=== PATIENT | male | born 1995 | race Caucasian/White ===

== ENCOUNTER → 2020-05-29 11:01 | Outpatient (CLI) | payer MEDICAID, SELFPAY ==
[2020-05-29 12:12] LABS: Absolute Lymphocyte Count 1.68 X10^3/uL (0.83-4.51); Absolute Neutrophil Count 3.3 X10^3/uL (2.0-7.7); Basophil# 0.05 X10^3/uL; Basophil% 0.8 % (0-1); Eosinophil# 0.28 X10^3/uL; Eosinophils% 4.7 % (0-5); Hematocrit 46.1 % (40-54); Hemoglobin 15.1 g/dL (13.0-16.5); Lymphocyte # 1.68 X10^3/ul (4.0); Lymphocyte % 28.1 % (19-41); Mean Corp Hgb Conc 32.8 g/dL (32-36); Mean Corpuscular Hgb 27.7 pg (27.0-32.0); Mean Corpuscular Volume 84.4 fL (80-94); Mean Platelet Vol. 10.7 fl (6.2-12.0); Monocyte# 0.68 X10^3/uL; Monocyte% 11.4 % (0-10); NRBC Flagged by Analyzer 0 % (0-5); Neutrophil # 3.27 X10^3/uL (2.7-7.7); Neutrophil % 54.8 % (47-70); Platelet Count 249 K/mm3 (150-450); RBC Distribution Width CV 12.8 % (11.6-14.6); RBC Distribution Width SD 38.8 fl (35.1-43.9); Red Blood Count 5.46 M/mm3 (4.6-6.2)
[2020-05-29 12:44] LABS: Hemoglobin A1c 5.3 % (3.8-5.6)
[2020-05-29 12:48] LABS: Microalbumin,Random Urine 11.7 mg/L (NO RANGE EST.); Microalbumin:Creatinine Ratio 5.8 mg/g CRE (<30 mg/g CRE)
[2020-05-29 12:59] LABS: ALB/GLOB Ratio 1.4 RATIO (0.9-2.4); AST(SGOT) 28 U/L (15-37); Alanine Aminotransfer ALT/SGPT 68 U/L (16-61); Albumin, Serum 4.2 g/dL (3.2-5.0); Alkaline Phosphatase 103 U/L (45-117); Anion Gap 7 (5-15); BUN 10 mg/dL (7-18); BUN/Creat Ratio 13.4 RATIO (10-20); Calcium,Total 9.1 mg/dL (8.5-10.1); Chloride 107 mmol/L (98-107); Cholesterol 162 mg/dL (200); Creatinine, Serum 0.74 mg/dL (0.70-1.30); EST Glomerular Filtration Rate 135 mL/min (>60); Est Glom Filt Rate - Afr Amer 163 mL/min (>60); GGTP 45 U/L (15-85); Globulin 3.1 g/dL (2.2-4.2); Glucose 107 mg/dL (74-106); High Density Lipoprotein 32 mg/dL; Potassium 4.1 mmol/L (3.5-5.1); Protein, Total 7.3 g/dL (6.4-8.2); Sodium Level 141 mmol/L (136-145); Thyroid Stim Hormone (TSH) 1.94 uIU/mL (0.358-3.74)
== END ==
PROVIDERS: PCP Family Medicine; Referring Provider Family Medicine; Visit Provider Family Medicine
DX: E11.9 Type 2 diabetes mellitus without complications (principal); F41.9 Anxiety disorder, unspecified; E66.9 Obesity, unspecified
CPT/HCPCS: 36415; 80053; 82043; 82465; 82570; 82977; 83036; 83718; 84443; 85025

== ENCOUNTER → 2020-11-19 11:37 | Outpatient (CLI) | payer MEDICAID, SELFPAY ==
[2020-11-19 15:22] LABS: Absolute Lymphocyte Count 1.44 X10^3/uL (0.83-4.51); Absolute Neutrophil Count 2.2 X10^3/uL (2.0-7.7); Basophil# 0.05 X10^3/uL; Basophil% 1.1 % (0-1); Eosinophil# 0.22 X10^3/uL; Hematocrit 49.4 % (40-54); Hemoglobin 17.3 g/dL (13.0-16.5); Lymphocyte # 1.44 X10^3/ul (0.83-4.51); Lymphocyte % 32.7 % (19-41); Mean Corpuscular Hgb 27.7 pg (27.0-32.0); Mean Platelet Vol. 11.7 fl (6.2-12.0); Monocyte# 0.53 X10^3/uL; NRBC Flagged by Analyzer 0 % (0-5); Neutrophil # 2.16 X10^3/uL (2.7-7.7); Platelet Count 256 K/mm3 (150-450); RBC Distribution Width CV 12.6 % (11.6-14.6); RBC Distribution Width SD 35.7 fl (35.1-43.9); Red Blood Count 6.25 M/mm3 (4.6-6.2); White Blood Count 4.4 K/mm3 (4.4-11.0)
[2020-11-19 16:15] LABS: AST(SGOT) 119 U/L (15-37); Alanine Aminotransfer ALT/SGPT 162 U/L (16-61); Albumin, Serum 3.9 g/dL (3.2-5.0); Alkaline Phosphatase 175 U/L (45-117); Anion Gap 9 (5-15); BUN 11 mg/dL (7-18); BUN/Creat Ratio 12.6 RATIO (10-20); Calcium,Total 9.3 mg/dL (8.5-10.1); Chloride 101 mmol/L (98-107); Creatinine, Serum 0.87 mg/dL (0.70-1.30); EST Glomerular Filtration Rate 112 mL/min (>60); Est Glom Filt Rate - Afr Amer 135 mL/min (>60); Globulin 3.8 g/dL (2.2-4.2); Glucose 301 mg/dL (74-106); Potassium 4.2 mmol/L (3.5-5.1); Protein, Total 7.7 g/dL (6.4-8.2); Sodium Level 133 mmol/L (136-145)
== END ==
PROVIDERS: PCP Family Medicine; Referring Provider Family Medicine; Visit Provider Family Medicine
DX: E11.65 Type 2 diabetes mellitus with hyperglycemia (principal)
CPT/HCPCS: 36415; 80053; 85025

== ENCOUNTER → 2021-01-27 16:01 | Outpatient (CLI) | payer MEDICAID, SELFPAY ==
[2021-01-27 18:04] LABS: ALB/GLOB Ratio 0.8 RATIO (0.9-2.4); AST(SGOT) 84 U/L (15-37); Alanine Aminotransfer ALT/SGPT 130 U/L (16-61); Albumin, Serum 3.5 g/dL (3.2-5.0); Alkaline Phosphatase 105 U/L (45-117); Anion Gap 5 (5-15); BUN 13 mg/dL (7-18); BUN/Creat Ratio 15.6 RATIO (10-20); Calcium,Total 9.7 mg/dL (8.5-10.1); Chloride 103 mmol/L (98-107); Creatinine, Serum 0.84 mg/dL (0.70-1.30); EST Glomerular Filtration Rate 117 mL/min (>60); Est Glom Filt Rate - Afr Amer 142 mL/min (>60); Globulin 4.4 g/dL (2.2-4.2); Glucose 94 mg/dL (74-106); Potassium 4.5 mmol/L (3.5-5.1); Protein, Total 7.9 g/dL (6.4-8.2); Sodium Level 135 mmol/L (136-145)
[2021-01-27 18:09] LABS: Hemoglobin A1c 8.3 % (3.8-5.6)
== END ==
PROVIDERS: PCP Family Medicine; Referring Provider Family Medicine; Visit Provider Family Medicine
DX: R74.01 Elevation of levels of liver transaminase levels (principal); E11.65 Type 2 diabetes mellitus with hyperglycemia
CPT/HCPCS: 36415; 80053; 83036

== ENCOUNTER 2021-04-28 11:01 | Outpatient (CLI) | payer MEDICAID, SELFPAY ==
[2021-04-28 12:21] LABS: Absolute Lymphocyte Count 1.95 X10^3/uL (0.83-4.51); Absolute Neutrophil Count 3.2 X10^3/uL (2.0-7.7); Basophil# 0.06 X10^3/uL; Eosinophil# 0.28 X10^3/uL; Eosinophils% 4.5 % (0-5); Hematocrit 44.1 % (40-54); Hemoglobin 15.5 g/dL (13.0-16.5); Lymphocyte # 1.95 X10^3/ul (0.83-4.51); Lymphocyte % 31.1 % (19-41); Mean Corp Hgb Conc 35.1 g/dL (32-36); Mean Corpuscular Hgb 28.8 pg (27.0-32.0); Mean Platelet Vol. 10.5 fl (6.2-12.0); Monocyte# 0.73 X10^3/uL; Monocyte% 11.6 % (0-10); NRBC Flagged by Analyzer 0 % (0-5); Neutrophil # 3.23 X10^3/uL (2.7-7.7); Neutrophil % 51.3 % (47-70); Platelet Count 247 K/mm3 (150-450); RBC Distribution Width CV 13.5 % (11.6-14.6); RBC Distribution Width SD 39.8 fl (35.1-43.9); Red Blood Count 5.38 M/mm3 (4.6-6.2); White Blood Count 6.3 K/mm3 (4.4-11.0)
[2021-04-28 12:56] LABS: ALB/GLOB Ratio 1.2 RATIO (0.9-2.4); AST(SGOT) 110 U/L (15-37); Alanine Aminotransfer ALT/SGPT 170 U/L (16-61); Albumin, Serum 4.1 g/dL (3.2-5.0); Alkaline Phosphatase 97 U/L (45-117); Anion Gap 7 (5-15); BUN 11 mg/dL (7-18); BUN/Creat Ratio 12.3 RATIO (10-20); Calcium,Total 9.7 mg/dL (8.5-10.1); Chloride 104 mmol/L (98-107); EST Glomerular Filtration Rate 108 mL/min (>60); Est Glom Filt Rate - Afr Amer 131 mL/min (>60); Globulin 3.5 g/dL (2.2-4.2); Glucose 122 mg/dL (74-106); Potassium 4.1 mmol/L (3.5-5.1); Protein, Total 7.6 g/dL (6.4-8.2); Sodium Level 137 mmol/L (136-145); Thyroid Stim Hormone (TSH) 4.17 uIU/mL (0.358-3.74)
== END 2021-04-28 23:59 | disposition home or self-care (01) ==
LOC: MFPLAB 11:04
PROVIDERS: PCP Family Medicine; Referring Provider Family Medicine; Visit Provider Family Medicine
DX: E11.65 Type 2 diabetes mellitus with hyperglycemia (principal); F31.9 Bipolar disorder, unspecified; E66.9 Obesity, unspecified; Z68.33 Body mass index [BMI] 33.0-33.9, adult; R74.01 Elevation of levels of liver transaminase levels
CPT/HCPCS: 36415; 80053; 84443; 85025

== ENCOUNTER → 2022-04-27 | Outpatient (CLI) | payer MEDICAID, SELFPAY ==
[2022-04-27 17:57] LABS: Absolute Lymphocyte Count 1.65 X10^3/uL (0.83-4.51); Basophil# 0.07 X10^3/uL; Basophil% 1.1 % (0-1); Eosinophil# 0.15 X10^3/uL; Eosinophils% 2.3 % (0-5); Hematocrit 47.8 % (40-54); Lymphocyte # 1.65 X10^3/ul (0.83-4.51); Lymphocyte % 24.8 % (19-41); Mean Corp Hgb Conc 33.5 g/dL (32-36); Mean Corpuscular Volume 83.7 fL (80-94); Mean Platelet Vol. 11.2 fl (6.2-12.0); Monocyte# 0.78 X10^3/uL; Monocyte% 11.7 % (0-10); NRBC Flagged by Analyzer 0 % (0-5); Neutrophil # 3.98 X10^3/uL (2.7-7.7); Neutrophil % 59.8 % (47-70); Platelet Count 243 K/mm3 (150-450); RBC Distribution Width CV 13.1 % (11.6-14.6); RBC Distribution Width SD 39.9 fl (35.1-43.9); Red Blood Count 5.71 M/mm3 (4.6-6.2); White Blood Count 6.7 K/mm3 (4.4-11.0)
[2022-04-27 18:09] LABS: Hemoglobin A1c 5.4 % (3.8-5.6)
[2022-04-27 18:19] LABS: ALB/GLOB Ratio 1.6 RATIO (0.9-2.4); AST(SGOT) 23 U/L (15-37); Alanine Aminotransfer ALT/SGPT 28 U/L (16-61); Albumin, Serum 4.6 g/dL (3.2-5.0); Alkaline Phosphatase 114 U/L (45-117); Anion Gap 7 (5-15); BUN 7 mg/dL (7-18); BUN/Creat Ratio 8.2 RATIO (10-20); Calcium,Total 9.9 mg/dL (8.5-10.1); Chloride 107 mmol/L (98-107); Creatinine, Serum 0.86 mg/dL (0.70-1.30); EST Glomerular Filtration Rate 113 mL/min (>60); Est Glom Filt Rate - Afr Amer 136 mL/min (>60); Globulin 2.8 g/dL (2.2-4.2); Glucose 70 mg/dL (74-106); Protein, Total 7.4 g/dL (6.4-8.2); Sodium Level 142 mmol/L (136-145); Thyroid Stim Hormone (TSH) 1.28 uIU/mL (0.358-3.74)
== END | disposition home or self-care (01) ==
LOC: MFPLAB 16:15
PROVIDERS: PCP Family Medicine; Referring Provider Family Medicine; Visit Provider Family Medicine
DX: E11.69 Type 2 diabetes mellitus with other specified complication (principal); F25.9 Schizoaffective disorder, unspecified
CPT/HCPCS: 36415; 80053; 83036; 84443; 85025

== ENCOUNTER → 2023-05-30 | Outpatient (CLI) | payer MEDICAID, OTHER, SELFPAY ==
[2023-05-30 17:45] LABS: Absolute Lymphocyte Count 2.18 X10^3/uL (0.83-4.51); Absolute Neutrophil Count 4.5 X10^3/uL (2.0-7.7); Basophil# 0.07 X10^3/uL; Basophil% 0.9 % (0-1); Eosinophils% 2.6 % (0-5); Hematocrit 50.1 % (40-54); Hemoglobin 16.4 g/dL (13.0-16.5); Lymphocyte # 2.18 X10^3/ul (0.83-4.51); Lymphocyte % 27.8 % (19-41); Mean Corp Hgb Conc 32.7 g/dL (32-36); Mean Corpuscular Hgb 27.1 pg (27.0-32.0); Mean Corpuscular Volume 82.7 fL (80-94); Mean Platelet Vol. 10.4 fl (6.2-12.0); Monocyte# 0.83 X10^3/uL; Monocyte% 10.6 % (0-10); NRBC Flagged by Analyzer 0 % (0-5); Neutrophil # 4.54 X10^3/uL (2.7-7.7); Neutrophil % 57.8 % (47-70); Platelet Count 250 K/mm3 (150-450); RBC Distribution Width CV 12.7 % (11.6-14.6); RBC Distribution Width SD 38.4 fl (35.1-43.9); Red Blood Count 6.06 M/mm3 (4.6-6.2); White Blood Count 7.8 K/mm3 (4.4-11.0)
[2023-05-30 17:49] LABS: POSITIVE COUNT NO; POSITIVE DIFFERENTIAL NO; POSITIVE MORPHOLOGY NO
[2023-05-30 17:56] LABS: Hemoglobin A1c 5.8 % (3.8-5.6)
[2023-05-30 18:12] LABS: Erythrocyte Sedimentation Rate 4 mm/hr (0-20)
[2023-05-30 18:22] LABS: ALB/GLOB Ratio 1.3 RATIO (0.9-2.4); AST(SGOT) 34 U/L (15-37); Alanine Aminotransfer ALT/SGPT 84 U/L (16-61); Albumin, Serum 4.1 g/dL (3.2-5.0); Alkaline Phosphatase 94 U/L (45-117); Anion Gap 3 (5-15); BUN 10 mg/dL (7-18); BUN/Creat Ratio 10.7 RATIO (10-20); CRP 4.78 mg/L (0.0-3.0); Calcium,Total 9.5 mg/dL (8.5-10.1); Chloride 110 mmol/L (98-107); Creatinine, Serum 0.94 mg/dL (0.70-1.30); EST Glomerular Filtration Rate 101 mL/min (>60); Est Glom Filt Rate - Afr Amer 123 mL/min (>60); Globulin 3.2 g/dL (2.2-4.2); Glucose 90 mg/dL (74-106); Potassium 4.3 mmol/L (3.5-5.1); Protein, Total 7.3 g/dL (6.4-8.2); Sodium Level 141 mmol/L (136-145)
== END | disposition home or self-care (01) ==
PROVIDERS: PCP Family Medicine; Visit Provider Family Medicine
DX: H05.012 Cellulitis of left orbit (principal)
CPT/HCPCS: 36415; 80053; 83036; 85025; 85652; 86140; 87070; 87077; 87186; 87205